=== PATIENT | male | born 1930 | race Caucasian/White ===

== ENCOUNTER → 2018-02-24 | Outpatient (CLI) | payer OTHER | LOC: BHFA 10:00 | PROVIDERS: ATTEND Internal Medicine Cardiovascular Disease | DX: I25.10 Atherosclerotic heart disease of native coronary artery without angina pectoris (principal); I49.5 Sick sinus syndrome; R06.02 Shortness of breath; R06.09 Other forms of dyspnea; R94.39 Abnormal result of other cardiovascular function study ==

== ENCOUNTER 2018-03-02 06:13 | Day surgery (SDC) | payer OTHER ==
[2018-03-02] MEDS ORDERED: NS 1,000 ML IV ONE (06:30)
[2018-03-02] MEDS ORDERED: FAMOTIDINE 20 MG TAB PO ONE (06:30)
[2018-03-02] MEDS ORDERED: ASPIRIN EC 325 MG TAB PO ONE (06:30)
[2018-03-02] MEDS ORDERED: diphenhydrAMINE 25 MG CAP PO ONE (06:30)
[2018-03-02] MEDS ORDERED: DIAZEPAM 5 MG TAB PO ONE (06:30)
--- NOTE | 2018-03-02 06:48 | CPEKG ---
Heart Rate: 70 RR Interval: 857 P-R Interval: 252 QRSD Interval: 88 QT Interval: 424 QTC Interval: 458 QRS [place]: 5 T Wave [place]: 23 EKG Severity - ABNORMAL ECG - EKG Impression: ATRIAL-PACED RHYTHM Electronically Signed By: Jayashree Lopez 03-Mar-2018 06:14:49
[2018-03-02 07:30] LABS: INR 1.31 (0.83-1.16); PROTIME(PATIENT) 16.5 SEC (12.0-15.0)
[2018-03-02] MEDS ORDERED: LIDOCAINE 1% 300 MG/30 ML SDV ONE (07:44)
[2018-03-02] MEDS ORDERED: IOPAMIDOL (ISOVUE-370) 150 ML BTL IV ONE (07:45)
[2018-03-02] MEDS ORDERED: fentaNYL 100 MCG/2 ML INJ ONE (07:45)
[2018-03-02] MEDS ORDERED: MIDAZOLAM 2 MG/2 ML VIAL ONE (07:45)
[2018-03-02 07:51] LABS: PLATELET COUNT 109 10^3/uL (150-400)
--- NOTE | 2018-03-02 08:04 | PDHPUP ---
History & Physical Update H&P update statement: This history and physical update is based on an assessment of the patient which was completed after admission or registration (within 24 hours), but prior to the surgery/procedure. H&P update: H&P reviewed & patient examined, no change in patient's condition since H&P completed (Plan for LHC in setting of VERDIN with known residual CAD and inferior ischemia on nuc stress. )
--- NOTE | 2018-03-02 08:04 | PDPROPOC ---
Sedation Plan of Care Sedation Plan of Care: vital signs stable, mental status noted, patient educated of risks, benefits, alternatives, patient can tolerate sedation ASA Classification: ASA 2 Planned drugs: fentanyl, midazolam Mallampati Score: Class 2 Mallampati Reference Image: Patient passed 3-3-2 rule?: Yes
[2018-03-02] MEDS ORDERED: OXYCODONE/APAP 5/325 TAB PO PRN (09:35)
[2018-03-02] MEDS ORDERED: ONDANSETRON 4 MG/2 ML VIAL IVP PRN (09:35)
[2018-03-02] MEDS ORDERED: ATROPINE SULFATE 1 MG/10 ML SYR IVP PRN (09:35)
[2018-03-02] MEDS ORDERED: HYDROCODONE/APAP 5/325 TAB PO PRN (09:35)
[2018-03-02] MEDS ORDERED: NITROGLYCERIN 0.4 MG BTL SL PRN (09:35)
--- NOTE | 2018-03-02 10:13 | CPIP ---
[f rep st] INVASIVE CARDIAC PROCEDURE DATE OF PROCEDURE: 03/02/2018 PROCEDURE PERFORMED: Diagnostic left heart catheterization. INDICATION FOR PROCEDURE: Known coronary artery disease with complaints of shortness of breath and d yspnea on exertion coupled with evidence of inferior wall ischemia on previous nuclear study with kno wn residual right coronary artery disease. PROCEDURE PERFORMED: Diagnostic left heart catheterization. PROCEDURE: After informed consent was obtained, the patient was brought to the cardiac catheterizati on lab where he was prepped and draped in a sterile fashion. The patient received sedation with annmarie anyken Versshalom. Right groin was anesthetized with 1% lidocaine. After appropriate level of sedation w as achieved, a 6-Ivorian catheter was placed into the right common femoral artery using a micropunctur e technique and modified Seldinger technique. A JL4 catheter was used to take images of the left cor onary anatomy in multiple projections. JL4 catheter was exchanged over a guidewire for a JR4 cathete r. JR4 catheter was used to take images of the right coronary anatomy in multiple projections. The JR4 catheter was exchanged over a guidewire for an angled pigtail catheter. Angled pigtail catheter was used across the aortic valve. Left ventriculogram was performed. LVEDP was assessed. Left vent riculogram, LVEF was obtained and aortic valve gradient was obtained. An angled pigtail catheter was removed over a guidewire. Patient tolerated the procedure well. FINDINGS: 1. Left main is normal size and normal caliber with no evidence of coronary artery disease. Left ma in trifurcates into a left anterior descending ramus and circumflex branch. 2. Left anterior descending demonstrates patent stent to the proximal LAD. There are mild luminal i rregularities throughout the remainder of the LAD. There is a small 1st diagonal branch with mild judi laura irregularities. 3. Circumflex artery is a nondominant vessel. There is mild to moderate diffuse disease with no chito dence of flow-limiting disease within the circumflex vessel or the moderate-sized 1st obtuse marginal branch. 4. Ramus branch demonstrates 20% to 30% proximal stenosis. Mild luminal irregularities to the remai nder of the vessel. 5. Right coronary artery is a dominant vessel that bifurcates into a PDA and PLV branch. There is 3 0% proximal stenosis, 20% mid stenosis with no evidence of flow-limiting disease. There are mild lum inal irregularities to the course of the vessel. HEMODYNAMICS: 1. LVEF 50% to 55%. LVEDP 26 mmHg. Aortic valve gradient none. LVEF 50% to 55%. 2. Right common femoral artery angiography demonstrates 6-Ivorian catheter placed just at the level o f the bifurcation. Manual pressure will be held. There is no evidence of trauma to the right common femoral artery or branch vessels. PLAN: 1. The patient does not require any intervention. 2. LVEDP is elevated at 26. Symptoms may be secondary to elevated LVEDP and will recommend diuretic therapy. 3. Will continue maximal medical therapy. His current LDL is 48. Blood pressure is well controlled . Heart rates are well controlled. Will return to Plavix and plan to restart Coumadin in formerly [facility] 24 hours. /[id number]/MODL
== END 2018-03-02 16:14 | disposition home or self-care (01) ==
LOC: FCATH 06:13
PROVIDERS: ATTEND Internal Medicine Cardiovascular Disease
PROC: 4A023N7 Measurement of Cardiac Sampling and Pressure, Left Heart, Percutaneous Approach (ICD-10-PCS; principal; 2018-03-02)
PROC: B2151ZZ Fluoroscopy of Left Heart using Low Osmolar Contrast (ICD-10-PCS; principal; 2018-03-02)
PROC: B2111ZZ Fluoroscopy of Multiple Coronary Arteries using Low Osmolar Contrast (ICD-10-PCS; principal; 2018-03-02)
DX: R94.39 Abnormal result of other cardiovascular function study (principal); R06.09 Other forms of dyspnea; R53.83 Other fatigue; R68.89 Other general symptoms and signs; I25.10 Atherosclerotic heart disease of native coronary artery without angina pectoris; E78.5 Hyperlipidemia, unspecified; I48.0 Paroxysmal atrial fibrillation; I49.5 Sick sinus syndrome; Z79.01 Long term (current) use of anticoagulants; Z86.73 Personal history of transient ischemic attack (TIA), and cerebral infarction without residual deficits; Z95.0 Presence of cardiac pacemaker; Z80.3 Family history of malignant neoplasm of breast; Z82.49 Family history of ischemic heart disease and other diseases of the circulatory system; Z95.5 Presence of coronary angioplasty implant and graft
CPT/HCPCS: J1644; J2250; J3010; Q9967

== ENCOUNTER 2018-03-26 12:16 | Emergency (ER) | payer OTHER ==
--- NOTE | 2018-03-26 12:25 | CPEKG ---
Heart Rate: 50 RR Interval: 1200 QRSD Interval: 86 QT Interval: 460 QTC Interval: 420 QRS [place]: 30 T Wave [place]: 38 EKG Severity - ABNORMAL ECG - EKG Impression: ATRIAL FIBRILLATION EKG Impression: Bradycardic, no pacemaker spikes Electronically Signed By: Zane Dowd 26-Mar-2018 12:37:22
[2018-03-26] MEDS ORDERED: NS 1,000 ML IV ONE (12:31)
--- NOTE | 2018-03-26 12:35 | EDPHY ---
H & P Stated Complaint: low HR dizzy starting this morning ppm "not working" Time Seen by Provider: 03/26/18 12:24 HPI/ROS: CHIEF COMPLAINT: Lightheaded, bradycardic HISTORY OF PRESENT ILLNESS: The patient is a 87-year-old man with a history of atrial fibrillation and pacemaker placement 11 years ago for sick sinus syndrome. He had his pacemaker checked 3 months ago and was told that it should last another 5 years. He also takes sotalol and his prescription was changed to a different manufacture 1 week ago. Today he noticed that he felt lightheaded and his heart rate was in the 40s. He does continue to take Coumadin and Plavix. No recent fevers. No shortness of breath. No chest pain. No nausea vomiting. No diarrhea. REVIEW OF SYSTEMS: Constitutional: denies: chills, fever, recent illness, recent injury EENTM: denies: blurred vision, double vision, nose congestion Respiratory: denies: cough, shortness of breath Cardiac: See HPI Gastrointestinal/Abdominal: denies: abdominal pain, diarrhea, nausea, vomiting, blood streaked stools Genitourinary: denies: dysuria, frequency, hematuria, pain Musculoskeletal: denies: joint pain, muscle pain Skin: denies: lesions, rash, jaundice, bruising Neurological: denies: headache, numbness, paresthesia, tingling, dizziness, weakness Hematologic/Lymphatic: denies: blood clots, easy bleeding, easy bruising Immunologic/allergic: denies: HIV/AIDS, transplant EXAM: GENERAL: Well-appearing, well-nourished and in no acute distress. HEAD: Atraumatic, normocephalic. EYES: Pupils equal round and reactive to light, extraocular movements intact, sclera anicteric, conjunctiva are normal. ENT: TMs normal, nares patent, oropharynx clear without exudates. Moist mucous membranes. NECK: Normal range of motion, supple without lymphadenopathy or JVD. LUNGS: Breath sounds clear to auscultation bilaterally and equal. No wheezes rales or rhonchi. HEART: Bradycardic and irregular ABDOMEN: Soft, nontender, normoactive bowel sounds. No guarding, no rebound. No masses appreciated. BACK: No CVA tenderness, no spinal tenderness, step-offs or deformities EXTREMITIES: Normal range of motion, no pitting or edema. No clubbing or cyanosis. NEUROLOGICAL: Cranial nerves II through XII grossly intact. Normal speech, normal gait. 5/5 strength, normal movement in all extremities, normal sensation PSYCH: Normal mood, normal affect. SKIN: Warm, dry, normal turgor, no visible rashes or lesions. Source: Patient Exam Limitations: No limitations - Personal History Tetanus Vaccine Date: unsure - Medical/Surgical History Hx Asthma: No Hx Chronic Respiratory Disease: No Hx Diabetes: No Hx Cardiac Disease: Yes Hx Renal Disease: No Hx Cirrhosis: No Hx Alcoholism: No Hx HIV/AIDS: No Hx Splenectomy or Spleen Trauma: No Other PMH: OA, PPM, TESTICULAR HYPOFUNCTION, AFIB, HTN, HYPERLIPIDEMIA, CAD, KRUSE NEUROMA, PROSTATITIS - Family History Significant Family History: No pertinent family hx - Social History Smoking Status: Former smoker Alcohol Use: Sober Drug Use: None Constitutional: Initial Vital Signs Temperature (C) 36.7 C 03/26/18 12:21 Heart Rate 59 L 03/26/18 12:21 Respiratory Rate 18 03/26/18 12:21 Blood Pressure 175/132 H 03/26/18 12:21 O2 Sat (%) 96 03/26/18 12:21 O2 Delivery Mode Room Air Allergies/Adverse Reactions: Antihistamines - Alkylamine Allergy (Severe, Verified 03/26/18 12:20) ticagrelor [From Brilinta] Allergy (Verified 03/26/18 12:20) Antihistamines Allergy (Uncoded 03/02/18 07:06) Home Medications: Medication Instructions Recorded Warfarin Sodium [Coumadin 5MG (*)] 5 mg PO SUMOWETHSA 12/26/12 Clopidogrel Bisulfate [Plavix (*)] 75 mg PO DAILY 02/25/18 Cyanocobalamin [Vitamin B12 (*)] 1,000 mcg PO DAILY 02/25/18 Herbals/Supplements -Info Only 1 ea PO DAILY 02/25/18 Rosuvastatin Calcium [Crestor 20mg 20 mg PO DAILY 02/25/18 (*)] Sotalol HCl [Sotalol] 120 mg PO BID 02/25/18 Warfarin Sodium [Coumadin 2.5MG 2.5 mg PO TUFR 02/25/18 (*)] Brilinta 03/26/18 Medical Decision Making - Diagnostics EKG Interpretation: An EKG obtained and was read and documented in trace view. Please see trace view for full reading and report. Atrial fibrillation, bradycardic no acute ischemic changes no pacemaker spikes. Imaging Results: Imaging Impressions Chest X-Ray 03/26/18 12:31 Impression: Nothing acute identified. There is chronic elevation of the right hemidiaphragm. If there is concern for diaphragmatic paralysis then consider chest fluoroscopy. 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 ED Course/Re-evaluation: We called the pacemaker rep, no evaluate. I suspect that maybe his voltage needs to be turned up. 2:00 p.m. the pacemaker rep has evaluated the pacemaker. It is sensing atrial beats but the ventricular lead was turned off 2 years ago because of his symptomatic causing him lightheadedness occasionally. We turned on the ventricular pacing. He currently is not having any discomfort. I discussed the case with Dr. Sue who agrees with turning on the ventricular aspect. He agrees with discharging thereafter. 2:30 p.m. the patient's ventricular lead was turned on. He is now DDDR. He was road tested and is tolerating it well. His blood pressure is 118/60. He is eager to go home. Differential Diagnosis: Partial list of the Differential diagnosis considered include but were not limited to; pacemaker malfunction, sick sinus syndrome, atrial fibrillation and although unlikely based on the history and physical exam, I also considered acute coronary disease, PE, pneumonia. I discussed these differential diagnoses and the plan with the patient as well as the usual and expected course. The patient understands that the diagnosis is provisional and that in medicine we are not always correct and that further workup is often warranted. Usual and customary warnings were given. All of the patient's questions were answered. The patient was instructed to return to the emergency department should the symptoms at all worsen or return, otherwise to followup with the physician as we discussed. - Data Points Laboratory Results: Laboratory Results 03/26/18 12:30 03/26/18 12:30 03/26/18 03/26/18 03/26/18 13:35 12:33 12:30 WBC RBC Hgb Hct MCV MCH MCHC RDW Plt Count MPV Neut % (Auto) Lymph % (Auto) [place] % (Auto) Eos % (Auto) Baso % (Auto) Nucleat RBC Rel Count Absolute Neuts (auto) Absolute Lymphs (auto) Absolute Monos (auto) Absolute Eos (auto) Absolute Basos (auto) Absolute Nucleated RBC Immature Gran % Immature Gran # PT 25.3 SEC H SEC (12.0-15.0) INR 2.30 H (0.83-1.16) APTT 34.7 SEC SEC (23.0-38.0) Sodium 139 mEq/L mEq/L (135-145) Potassium 5.0 mEq/L mEq/L (3.3-5.0) Chloride 104 mEq/L mEq/L (97-110) Carbon Dioxide 27 mEq/l mEq/l (22-31) Anion Gap 8 mEq/L mEq/L (8-16) BUN 18 mg/dL mg/dL (7-23) Creatinine 1.0 mg/dL mg/dL (0.7-1.3) Estimated GFR > 60 Glucose 145 mg/dL H mg/dL (70-100) Calcium 9.4 mg/dL mg/dL (8.5-10.4) POC Troponin I 0.01 ng/mL ng/mL (0.00-0.08) 03/26/18 12:30 WBC 8.39 10^3/uL 10^3/uL (3.80-9.50) RBC 6.58 10^6/uL H 10^6/uL (4.40-6.38) Hgb 19.4 g/dL H g/dL (13.7-17.5) Hct 59.2 % H % (40.0-51.0) MCV 90.0 fL fL (81.5-99.8) MCH 29.5 pg pg (27.9-34.1) MCHC 32.8 g/dL g/dL (32.4-36.7) RDW 13.8 % % (11.5-15.2) Plt Count 126 10^3/uL L 10^3/uL (150-400) MPV 11.4 fL fL (8.7-11.7) Neut % (Auto) 56.5 % % (39.3-74.2) Lymph % (Auto) 33.3 % % (15.0-45.0) [place] % (Auto) 7.7 % % (4.5-13.0) Eos % (Auto) 1.5 % % (0.6-7.6) Baso % (Auto) 0.5 % % (0.3-1.7) Nucleat RBC Rel Count 0.0 % % (0.0-0.2) Absolute Neuts (auto) 4.74 10^3/uL 10^3/uL (1.70-6.50) Absolute Lymphs (auto) 2.79 10^3/uL 10^3/uL (1.00-3.00) Absolute Monos (auto) 0.65 10^3/uL 10^3/uL (0.30-0.80) Absolute Eos (auto) 0.13 10^3/uL 10^3/uL (0.03-0.40) Absolute Basos (auto) 0.04 10^3/uL 10^3/uL (0.02-0.10) Absolute Nucleated RBC 0.00 10^3/uL 10^3/uL (0-0.01) Immature Gran % 0.5 % % (0.0-1.1) Immature Gran # 0.04 10^3/uL 10^3/uL (0.00-0.10) PT INR APTT Sodium Potassium Chloride Carbon Dioxide Anion Gap BUN Creatinine Estimated GFR Glucose Calcium POC Troponin I Medications Given: Discontinued Medications Sodium Chloride (Ns) 1,000 mls @ 0 mls/hr IV EDNOW ONE; Wide Open PRN Reason: Protocol Stop: 03/26/18 12:32 Last Admin: 03/26/18 13:11 Dose: 1,000 mls Point of Care Test Results: Chemistry 03/26/18 12:33 POC Troponin I 0.01 ng/mL ng/mL (0.00-0.08) Departure - Departure Disposition: Home, Routine, Self-Care Clinical Impression: Bradycardia Atrial fibrillation Qualifiers: Atrial fibrillation type: chronic Qualified Code(s): I48.2 - Chronic atrial fibrillation Condition: Fair Instructions: A-fib (Atrial Fibrillation) (ED), Bradycardia (ED) Referrals: Khushi Byrd MD [Primary Care Provider] - As per Instructions Jefry Huang MD [Medical Doctor] - 2-3 days, call for appt.
[2018-03-26 12:56] LABS: PLATELET COUNT 126 10^3/uL (150-400)
[2018-03-26 13:52] LABS: INR 2.3 (0.83-1.16); PROTIME(PATIENT) 25.3 SEC (12.0-15.0)
[2018-03-26 14:35] VITALS: BP 118/62
== END 2018-03-26 14:33 | disposition home or self-care (01) ==
DX: I48.2 Chronic atrial fibrillation (principal); I25.10 Atherosclerotic heart disease of native coronary artery without angina pectoris; E86.9 Volume depletion, unspecified; I10 Essential (primary) hypertension; Z79.01 Long term (current) use of anticoagulants; Z87.891 Personal history of nicotine dependence
CPT/HCPCS: 84484-PO

== ENCOUNTER 2018-04-01 11:55 | Day surgery (SDC) | payer OTHER ==
[2018-04-01] MEDS ORDERED: fentaNYL 100 MCG/2 ML INJ IVP ONE (11:59)
[2018-04-01] MEDS ORDERED: ATROPINE SULFATE 1 MG/10 ML SYR IVP ONE (11:59)
[2018-04-01] MEDS ORDERED: MIDAZOLAM 2 MG/2 ML VIAL IVP ONE (11:59)
[2018-04-01] MEDS ORDERED: BENZOCAINE UNIT DOSE SPRAY HURRICAINE MM ONE (11:59)
[2018-04-01] MEDS ORDERED: NS 500 ML IV ONE (11:59)
--- NOTE | 2018-04-01 12:15 | CPEKG ---
Heart Rate: 60 RR Interval: 1000 P-R Interval: 210 QRSD Interval: 88 QT Interval: 440 QTC Interval: 440 P [place]: 53 QRS [place]: -1 T Wave [place]: 12 EKG Severity - ABNORMAL ECG - EKG Impression: ATRIAL-PACED COMPLEXES Electronically Signed By: Sonido Walters 07-Apr-2018 16:20:09
== END 2018-04-01 14:11 | disposition home or self-care (01) ==
LOC: FCATH 11:55
PROVIDERS: ATTEND Internal Medicine Cardiovascular Disease
DX: I48.0 Paroxysmal atrial fibrillation (principal); I49.5 Sick sinus syndrome; R53.83 Other fatigue; I25.10 Atherosclerotic heart disease of native coronary artery without angina pectoris; I10 Essential (primary) hypertension; E78.5 Hyperlipidemia, unspecified; Z79.01 Long term (current) use of anticoagulants; Z82.49 Family history of ischemic heart disease and other diseases of the circulatory system; Z86.73 Personal history of transient ischemic attack (TIA), and cerebral infarction without residual deficits; Z95.0 Presence of cardiac pacemaker; Z95.5 Presence of coronary angioplasty implant and graft; Z53.09 Procedure and treatment not carried out because of other contraindication

== ENCOUNTER 2018-08-31 08:57 | Emergency (ER) | payer OTHER ==
--- NOTE | 2018-08-31 09:28 | EDPHY ---
H & P Time Seen by Provider: 08/31/18 09:03 HPI/ROS: This patient presents with bleeding from right ear at site of skin lesion excision by the spray painter yesterday-Dr. Whaley. There was a dressing in place and the patient awakened this morning bleeding through the dressing on his shirt. He has a history notable for taking Coumadin with recent therapeutic INR. He also takes Plavix. He reports no significant ear pain but is concerned about the ear bleeding. His placed a new dressing on the ear prior to arrival. The patient reports the bleeding has slowed since the new dressing was placed. ROS: Constitutional: No complaints Cardiopulmonary: No lightheadedness HEENT: No complaints to the ear itself-only to the earlobe. 5 point review of symptoms is performed and otherwise negative with exception of pertinent positives and negatives listed in HPI and ROS Smoking Status: Former smoker Physical Exam: Physical Exam Vital signs are normal. General: No acute distress HEENT: Patient has mild bleeding from the pain of the ear lobe on the right side from site of surgical excision of lesion an area approximately 5 by 8 mm in size at the top of the ear lobe. External canal is normal left ear is normal. Eyes: Pupils equal and react to light. Extraocular motions are intact. Lungs: No respiratory distress. Cardiac: Brisk capillary refill is intact throughout. Skin: No rash or pallor. Neuro: Alert and oriented x3 with no sensorimotor deficits. Constitutional: Initial Vital Signs Temperature (C) 36.5 C 08/31/18 09:04 Heart Rate 63 08/31/18 09:04 Respiratory Rate 18 08/31/18 09:04 Blood Pressure 158/100 H 08/31/18 09:04 O2 Sat (%) 94 08/31/18 09:04 O2 Delivery Mode Room Air Allergies/Adverse Reactions: Antihistamines - Alkylamine Allergy (Severe, Verified 08/31/18 09:02) ticagrelor [From Brilinta] Allergy (Verified 08/31/18 09:02) Antihistamines Allergy (Uncoded 08/31/18 09:02) Home Medications: Medication Instructions Recorded Warfarin Sodium [Coumadin 5MG (*)] 5 mg PO SUMOWETHSA 12/26/12 Clopidogrel Bisulfate [Plavix (*)] 75 mg PO DAILY 02/25/18 Cyanocobalamin [Vitamin B12 (*)] 1,000 mcg PO DAILY 02/25/18 Herbals/Supplements -Info Only 1 ea PO DAILY 02/25/18 Rosuvastatin Calcium [Crestor 20mg 20 mg PO DAILY 02/25/18 (*)] Sotalol HCl [Sotalol] 120 mg PO BID 02/25/18 Warfarin Sodium [Coumadin 2.5MG 2.5 mg PO TUFR 02/25/18 (*)] MDM/Departure - MDM ED Course/Re-evaluation: Our tech clean the ear, applied Surgicel dressing with positive hemostasis. We counseled patient regarding wound care. - Depart Disposition: Home, Routine, Self-Care Clinical Impression: Visit for wound care Condition: Good Instructions: Acute Wounds (ED) Additional Instructions: Diagnosis: Bleeding from the site of surgical excision-wound check Plan: Keep the dressing in place for the next 2 days and then try to gently remove it with warm soapy water and peroxide, gently clean and reapply dressing. Return for any significant worsening despite treatment plan Referrals: Khushi Byrd MD [Primary Care Provider] - As per Instructions
[2018-08-31 10:28] VITALS: BP 137/81
== END 2018-08-31 10:10 | disposition home or self-care (01) ==
LOC: CED 08:57
DX: H95.42 Postprocedural hemorrhage of ear and mastoid process following other procedure (principal); Z79.01 Long term (current) use of anticoagulants

== ENCOUNTER → 2018-08-31 | Outpatient (CLI) | payer OTHER | LOC: CIMAGING 08:25 | PROVIDERS: ATTEND Internal Medicine Cardiovascular Disease | DX: N28.1 Cyst of kidney, acquired (principal); I48.91 Unspecified atrial fibrillation; I10 Essential (primary) hypertension | CPT/HCPCS: 76770-PO ==

== ENCOUNTER 2018-11-19 12:12 | Emergency (ER) | payer OTHER ==
[2018-11-19] MEDS ORDERED: traMADol 50 MG TAB PO ONE (13:55)
--- NOTE | 2018-11-19 13:58 | EDPHY ---
H & P Time Seen by Provider: 11/19/18 12:51 HPI/ROS: This patient fell at home Wednesday he believes, few days prior to this visit with a subsequent hemorrhagic effusion to the left knee for which she was seen by Orthopedics later that same day during a previously scheduled routine follow- up for osteoarthritis. They performed at arthrocentesis without imaging at that time and patient reports ongoing moderate pain and swelling to the knee and the distal thigh. He had an INR of 3.1 at that time and is continued his Coumadin. He is accompanied by his who drove him here by private vehicle for evaluation he reports the current pain is 6/10 at baseline worse with walking. ROS: Constitutional: No complaints HEENT: No trauma Pulmonary: No dyspnea Cardiovascular: No complaints GI: No nausea vomiting Integumentary: No lacerations or abrasions Musculoskeletal: No popping sensation or feeling of instability since the fall 7 point review of symptoms is performed and otherwise negative with exception of pertinent positives and negatives listed in HPI and ROS Smoking Status: Former smoker Physical Exam: Physical Exam Vital signs are normal. General: No acute distress HEENT: Atraumatic. Eyes: Pupils equal and react to light. Extraocular motions are intact. Lungs: No respiratory distress. Cardiac: Brisk capillary refill is intact throughout. Pulses are 2+ and symmetric in the affected extremity. Skin: No rash or pallor. Extremities: Atraumatic normal except for right lower extremity Right lower extremity: Patient has a mild to moderate knee effusion with slight swelling of the distal thigh. Phyllis's exam is negative for laxity. Varus and valgus stress without increase in pain. No difficulty eating and flexing or extending the knee. Neuro: Alert and oriented x3 with no sensorimotor deficits. Initial differential diagnosis: Tibial plateau fracture or other knee fracture , knee sprain, traumatic hematoma, thigh muscle strain or tear Constitutional: Initial Vital Signs Temperature (C) 36.4 C 11/19/18 12:32 Heart Rate 60 11/19/18 12:32 Respiratory Rate 18 11/19/18 12:32 Blood Pressure 176/84 H 11/19/18 12:32 O2 Sat (%) 92 11/19/18 12:32 O2 Delivery Mode Room Air Allergies/Adverse Reactions: Antihistamines - Alkylamine Allergy (Severe, Verified 11/19/18 12:37) ticagrelor [From Brilinta] Allergy (Verified 11/19/18 12:37) Antihistamines Allergy (Uncoded 11/19/18 12:37) Home Medications: Medication Instructions Recorded Warfarin Sodium [Coumadin 5MG (*)] 5 mg PO SUMOWETHSA 12/26/12 Clopidogrel Bisulfate [Plavix (*)] 75 mg PO DAILY 02/25/18 Cyanocobalamin [Vitamin B12 (*)] 1,000 mcg PO DAILY 02/25/18 Herbals/Supplements -Info Only 1 ea PO DAILY 02/25/18 Rosuvastatin Calcium [Crestor 20mg 20 mg PO DAILY 02/25/18 (*)] Sotalol HCl [Sotalol] 120 mg PO BID 02/25/18 Warfarin Sodium [Coumadin 2.5MG 2.5 mg PO TUFR 02/25/18 (*)] Metoprolol Succinate 11/19/18 Tylenol 11/19/18 traMADol [Ultram 50 mg (*)] 50 - 100 mg PO Q4 PRN #15 tab 11/19/18 MDM/Departure - MDM Imaging Results: Imaging Impressions Knee X-Ray 11/19/18 12:52 Impression: 1. No acute osseous abnormality seen right knee. 2. Degenerative changes or prominent medial knee joint and patellofemoral joint. 3. Small effusion suprapatellar bursa. Imaging: Discussed imaging studies w/ order caller Radiologist Medications Given: Discontinued Medications Tramadol HCl (Ultram) 50 mg PO EDNOW ONE Stop: 11/19/18 13:56 Last Admin: 11/19/18 14:02 Dose: 50 mg ED Course/Re-evaluation: Ice, Tylenol, tramadol with improvement in pain, Stephen wrap applied I counseled this patient regarding traumatic hematoma and effusion. Discussion: No evidence of fracture or significant ligamentous injury based on exam and x-rays. I think that the cause of the patient's symptoms is a significant hematoma the distal thigh and knee effusion. I counseled regarding this in some detail. We treated him with ice, Stephen wrap, Tylenol and tramadol plan to continue the same with close follow up with Orthopedics as an outpatient. Given an INR of 3.1 few days prior to this visit and compliance with his Coumadin I do not think he has a DVT. - Depart Disposition: Home, Routine, Self-Care Clinical Impression: Knee effusion, right Condition: Fair Instructions: Swollen Knee Joint (ED) Additional Instructions: Diagnosis: Knee effusion and thigh pain There is no fracture evident on your x-ray today. Plan: Continue current medications Take Tylenol and tramadol in addition for pain control. No driving, alcohol or come tramadol Stephen wrap few thigh and leg, ice at least 20 min at a time 3 times a day or more until swelling resolved elevate the leg whenever possible. Limit your activity until he feel improved Follow up with primary care physician or orthopedic physician for recheck. Return for any significant worsening despite treatment plan. Prescriptions: traMADol [Ultram 50 mg (*)] 50 - 100 mg PO Q4 PRN #15 tab PRN Reason: breakthrough pain Referrals: Jefry Weeks [Primary Care Provider] - As per Instructions
[2018-11-19 14:11] VITALS: BP 146/78
== END 2018-11-19 14:24 | disposition home or self-care (01) ==
LOC: CED 12:12
DX: M17.11 Unilateral primary osteoarthritis, right knee (principal); M25.461 Effusion, right knee
CPT/HCPCS: 73562-PO; 99283-ER

== ENCOUNTER → 2018-11-30 | Outpatient (CLI) | payer OTHER | LOC: FIMAGING 09:49 | PROVIDERS: ATTEND Physician Assistant | DX: S76.301A Unspecified injury of muscle, fascia and tendon of the posterior muscle group at thigh level, right thigh, initial encounter (principal) ==

== ENCOUNTER → 2019-02-28 | Outpatient (CLI) | payer OTHER | LOC: FIMAGING 08:28 ==